=== PATIENT | female | born 1935 | race Caucasian/White ===

== ENCOUNTER → 2021-05-29 | Outpatient (CLI) | payer OTHER ==
[2021-05-29 17:44] LABS: BASOPHILS ABSOLUTE AUTO 0.05 K/mm3 (0.00-0.23); BASOPHILS PERCENT AUTO 1 % (0-2); EOSINOPHILS ABSOLUTE AUTO 0.22 K/mm3 (0.00-0.68); EOSINOPHILS PERCENT AUTO 4 % (0-6); Hematocrit 43.6 % (33.0-51.0); Hemoglobin 14.2 g/dL (11.5-16.0); IMMATURE GRAN ABSOLUTE AUTO 0.01 K/mm3 (0.00-0.10); IMMATURE GRAN PERCENT AUTO 0 % (0-1); LYMPHOCYTES ABSOLUTE AUTO 1.44 K/mm3 (0.84-5.20); LYMPHOCYTES PERCENT AUTO 24 % (21-46); MONOCYTES ABSOLUTE AUTO 0.39 K/mm3 (0.16-1.47); MONOCYTES PERCENT AUTO 6 % (4-13); Mean Corpuscular HGB 30.6 pg (26.0-34.0); Mean Corpuscular HGB Conc 32.6 g/dL (31.5-36.5); Mean Corpuscular Volume 94 fL (80-100); Mean Platelet Volume 12.6 fL (9.1-12.4); NEUTROPHILS ABSOLUTE AUTO 3.97 K/mm3 (1.96-9.15); NEUTROPHILS PERCENT AUTO 65 % (41-73); Platelet Count 203 K/mm3 (150-400); RDW Coefficient Variation 13.4 % (11.7-14.2); RDW Standard Deviation 46.5 fL (35.1-46.3); Red Blood Cell Count 4.64 M/mm3 (3.80-5.20); White Blood Cell Count 6.08 K/mm3 (4.00-11.30)
[2021-05-29 18:29] LABS: Albumin, Blood 3.5 g/dL (3.4-5.0); Albumin/Globulin Ratio 1.1 (0.8-1.8); Bilirubin, Total 0.5 mg/dL (0.1-1.0); Bun/Creatinine Ratio 16.6 (12.0-20.0); Calcium, Blood 8.9 mg/dL (8.5-10.1); Creatinine, Blood 0.96 mg/dL (0.40-1.00); Globulin, Blood 3.2 g/dL (2.2-4.0); Potassium, Blood 4.1 mmol/L (3.5-5.5); Total Protein, Blood 6.7 g/dL (6.4-8.2)
[2021-05-29 18:32] LABS: Thyroid Stimulating Hormone 1.44 uIU/mL (0.360-4.800)
[2021-05-29 18:57] LABS: CHOL/HDL RATIO 3.5; Cholesterol 183 mg/dL (50-200); HDL Cholesterol 52 mg/dL (>39); LDL/HDL RATIO 2.1; Low Density Lipoprotein Chol 111 mg/dL (0-110); Triglycerides 102 mg/dL (30-160); Very Low Density Lipoprot Chol 20 mg/dL (6-32)
== END ==
LOC: LAB SHORT 16:36
PROVIDERS: Nurse Practitioner Family
DX: E78.5 Hyperlipidemia, unspecified (principal); I10 Essential (primary) hypertension
CPT/HCPCS: 80053; 80061; 84443; 85025

== ENCOUNTER → 2023-02-05 | Outpatient (CLI) | payer MEDICARE | LOC: LAB SHORT 07:42 → PLD 07:42 | DX: D04.0 Carcinoma in situ of skin of lip (principal) | CPT/HCPCS: 88305 ==

== ENCOUNTER 2023-06-28 11:29 | Emergency (ER) | payer OTHER ==
[~2023-06-28] VITALS: Ht 175.3 cm; Wt 90.7 kg
[2023-06-28] MEDS ORDERED: CARVEDILOL6.25 MG PO (11:51)
[2023-06-28] MEDS ORDERED: AMLODIPINE BESY10 MG PO (11:51)
[2023-06-28] MEDS ORDERED: ATORVASTATIN CA20 MG PO (11:51)
[2023-06-28] MEDS ORDERED: LOSA50 PO (11:52)
[2023-06-28 12:02] LABS: BASOPHILS PERCENT AUTO 2 % (0-2); EOSINOPHILS ABSOLUTE AUTO 0.21 K/mm3 (0.00-0.68); EOSINOPHILS PERCENT AUTO 3 % (0-6); Hematocrit 43.3 % (33.0-51.0); Hemoglobin 14.6 g/dL (11.5-16.0); IMMATURE GRAN ABSOLUTE AUTO 0.01 K/mm3 (0.00-0.10); IMMATURE GRAN PERCENT AUTO 0 % (0-1); LYMPHOCYTES ABSOLUTE AUTO 1.59 K/mm3 (0.84-5.20); LYMPHOCYTES PERCENT AUTO 26 % (21-46); MONOCYTES ABSOLUTE AUTO 0.59 K/mm3 (0.16-1.47); MONOCYTES PERCENT AUTO 10 % (4-13); Mean Corpuscular HGB 31.2 pg (26.0-34.0); Mean Corpuscular HGB Conc 33.7 g/dL (31.5-36.5); Mean Corpuscular Volume 93 fL (80-100); Mean Platelet Volume 12.9 fL (9.1-12.4); NEUTROPHILS ABSOLUTE AUTO 3.71 K/mm3 (1.96-9.15); NEUTROPHILS PERCENT AUTO 60 % (41-73); Platelet Count 194 K/mm3 (150-400); RDW Coefficient Variation 13.2 % (11.7-14.2); RDW Standard Deviation 44.6 fL (35.1-46.3); Red Blood Cell Count 4.68 M/mm3 (3.80-5.20); White Blood Cell Count 6.21 K/mm3 (4.00-11.30)
[2023-06-28 12:28] LABS: Albumin, Blood 3.8 g/dL (3.4-5.0); Albumin/Globulin Ratio 1.1 (0.8-1.8); Bilirubin, Total 0.4 mg/dL (0.1-1.0); Bun/Creatinine Ratio 22.8 (12.0-20.0); Creatinine, Blood 0.97 mg/dL (0.40-1.00); Globulin, Blood 3.6 g/dL (2.2-4.0); Potassium, Blood 4.9 mmol/L (3.5-5.5); Total Protein, Blood 7.4 g/dL (6.4-8.2)
[2023-06-28 13:15] VITALS: BP 128/77
== END 2023-06-28 13:22 | disposition home or self-care (01) ==
LOC: ER 11:29
PROVIDERS: Physician Assistant
DX: R00.1 Bradycardia, unspecified (principal); T44.7X5A Adverse effect of beta-adrenoreceptor antagonists, initial encounter; I10 Essential (primary) hypertension; Z91.041 Radiographic dye allergy status; Z79.899 Other long term (current) drug therapy
CPT/HCPCS: 80053; 85025

== ENCOUNTER → 2024-12-01 | Outpatient (CLI) | payer OTHER ==
[~2024-12-01] MED LIST: AMLODIPINE BESY10 MG PO; ATORVASTATIN CA20 MG PO; CARVEDILOL6.25 MG PO; LOSA50 PO
[2024-12-01 17:08] LABS: Source, Urine Clean Catch
[2024-12-01 18:36] LABS: Bilirubin, Urine Neg (Neg); Color, Urine Yellow (P-Yellow); Glucose Qualitative, Urine Neg (Neg); Ketones, Urine Neg (Neg); Leukocyte Esterase, Urine Neg (Neg); Protein, Urine 2+ (Neg); Specific Gravity, Urine 1.025 (1.003-1.022); Urobilinogen, Urine NORM (Normal)
[2024-12-01 18:46] LABS: Red Blood Cells, Urine 0-2 /hpf (0-2)
== END ==
LOC: LAB SHORT 17:07 → LAB 17:07
PROVIDERS: Urology
DX: N39.46 Mixed incontinence (principal); B37.2 Candidiasis of skin and nail
CPT/HCPCS: 81001; 87077; 87086; 87186

== ENCOUNTER 2024-12-23 08:47 | Day surgery (SDC) | payer OTHER ==
[~2024-12-23] VITALS: Ht 175.3 cm; Wt 94.0 kg
[2024-12-23] VITALS (9 sets, daily range): BP systolic 119–167; BP diastolic 57–98
[~2024-12-23 08:47] MED LIST changes: +ATOR20 PO; +Aspir 8181 MG PO; +GABA300 PO; +MYRBETRIQ25 MG PO
[2024-12-23] MEDS ORDERED: NS 500 ML IV ONE ×3 (10:57→11:16)
[2024-12-23] MEDS ORDERED: Heparin Sodium 1000 Units/ML 10ML MDV ONE (10:57)
[2024-12-23] MEDS ORDERED: CeFAZolin Sodium 1000 mg Vial ONE (11:16)
[2024-12-23] MEDS ORDERED: CeFAZolin Sodium 2,000 MG VIAL ONE (11:16)
[2024-12-23] MEDS ORDERED: NS 100 ML IV ONE (11:19)
[2024-12-23] MEDS ORDERED: Midazolam HCl 1MG / ML 2ML Vial ONE (11:43)
[2024-12-23] MEDS ORDERED: FentaNYL Citrate 50 MCG/ML 2 ML Injection ONE (11:43)
--- NOTE | 2024-12-23 13:36 | NUR ---
PT BACK TO RECOVERY ROOM. PT SITTING UP IN RECLINER. DRESSING TO L CHEST IS CLEAN DRY AND INTACT. PT GIVEN COFFEE AND LUNCH. FAMILY TO BEDSIDE. PT DENIES PAIN, CP AND DIZZINESS. ICE PACK TO L SITE.
--- NOTE | 2024-12-23 14:53 | NUR ---
PT TO IMAGING FOR CHEST XRAYH.
--- NOTE | 2024-12-23 15:10 | NUR ---
PT AND FAMILY VERBALIZE D/C INSTRUCTIONS.
--- NOTE | 2024-12-23 15:23 | NUR ---
DR RAYMOND IN TO SEE PT AND FAMILY. DRESSING CLEAN DRY AND INTACT, ICE PACK IN PLACE. PT REQUESTS A SLING FOR SLEEPING AT NIGHT. DR ROCA'S SLING AND PT DEMONSTRATES CORRECT PRECAUTIONS OF L ARM. PT UP TO GET DRESSED.
--- NOTE | 2024-12-23 15:29 | NUR ---
PT WHEELED OUT OF DEPT IN WHEELCHAIR, ICE PACK AND D/C INSTRUCTIONS IN BAG. PT SURROUNDED BY FAMILY.
== END 2024-12-23 15:30 | disposition home or self-care (01) ==
LOC: MHTC 08:47
DX: R00.1 Bradycardia, unspecified (principal); E78.5 Hyperlipidemia, unspecified; I35.0 Nonrheumatic aortic (valve) stenosis; I45.5 Other specified heart block; I49.8 Other specified cardiac arrhythmias; I12.9 Hypertensive chronic kidney disease with stage 1 through stage 4 chronic kidney disease, or unspecified chronic kidney disease; N18.9 Chronic kidney disease, unspecified; I34.0 Nonrheumatic mitral (valve) insufficiency; Z87.891 Personal history of nicotine dependence; Z79.82 Long term (current) use of aspirin; Z79.899 Other long term (current) drug therapy; Z88.0 Allergy status to penicillin; Z91.041 Radiographic dye allergy status
CPT/HCPCS: 33208; 71046; 76937; 99152; 99153; C1785; C1898; J0690; J1644; J2250; J3010; J7040